=== PATIENT | female | born 1955 | race Caucasian/White ===

== ENCOUNTER 2016-10-15 11:28 | Outpatient (CLI) | payer OTHER ==
[2016-10-15 11:34] LABS: BASOPHILS % 0.5 (0.0-1.5); EOSINOPHILS % 2.6 % (0.0-6.8); LYMPHOCYTES # 1.8 # k/uL (0.6-4.0); MEAN CORPUSCULAR HEMOGLOBIN 28.5 pg (28.0-34.0); MONOCYTES # 0.5 # k/uL (0.0-0.9); MONOCYTES % 7.8 % (0.0-11.0); NEUTROPHILS # 4.3 # k/uL (1.4-7.7)
[2016-10-15 11:57] LABS: eGFR (African) > 60; eGFR (Non-African) > 60
== END 2016-10-15 11:30 ==
LOC: LABRHC 11:28
PROVIDERS: ATTEND Family Medicine
DX: R11.2 Nausea with vomiting, unspecified (principal)
CPT/HCPCS: 80053; 82150; 85025

== ENCOUNTER 2017-04-29 14:37 | Outpatient (CLI) | payer OTHER ==
--- NOTE | 2017-04-29 16:50 | Diagnostic Imaging Report ---
[facility] [id number] [facility].[address] [id number] Report Submission Date: Apr 29, 2017 3:09:29 PM CDT Patient Study Name: GRETEL ANGELES Date: Apr 29, 2017 2:48:53 PM CDT Modality Type: US Gender: F Description: US ABD LIMITED : 57 Institution: [facility] Physician: VITOR CALDERON - JAKOB Examination: Ultrasound abdomen limited History: Painful abdominal bulging near umbilicus. Comparison exams: None available Findings: Sonographic evaluation in the region of patient's reported discomfort demonstrates normal bowel within the abdominal cavity. No evidence for soft tissue mass or suspicious fluid collection. Impression: No evidence for soft tissue mass or suspicious fluid collection. Consider further evaluation with CT scan with valsalva maneuvers. Electronically signed on Apr 29, 2017 3:09:29 PM CDT by: Valente CORTEZ
== END 2017-04-29 14:40 ==
LOC: RAD 14:37
PROVIDERS: ATTEND Family Medicine
DX: K43.9 Ventral hernia without obstruction or gangrene (principal)
CPT/HCPCS: 76705

== ENCOUNTER 2017-05-10 07:27 | Outpatient (CLI) | payer OTHER ==
[2017-05-10 08:40] LABS: eGFR (African) > 60; eGFR (Non-African) > 60
--- NOTE | 2017-05-10 15:28 | Diagnostic Imaging Report ---
RHETT CALDERON [facility] [id number] [facility], [facility] [place], [place]. [address] Report Submission Date: May 10, 2017 10:02:45 AM CDT Patient Study Name: GRETEL ANGELES Date: May 10, 2017 9:24:36 AM CDT Modality Type: CT\SR Gender: F Description: CT ABD & PELVIS W/ CON : 57 Institution: [facility] Physician: RHETT CALDERON CT abdomen and pelvis with IV contrast Clinical history: Periumbilical abdominal pain for 1 month 88 ml of visipaque Radiation dose DLP 1194 4 cm hiatal hernia . No focal hepatic or splenic pathology. Mild fatty infiltration of the pancreas . Normal adrenal glands. Post cholecystectomy. Normal kidneys without hydronephrosis or mass lesions. No retroperitoneal adenopathy or aneurysm. 5.5 cm anterior abdominal wall ventral hernia with herniated small bowel loops, there is some edema in the region. Occasional incarceration of this hernia could not be entirely excluded. No bowel obstruction. No free fluid in the abdomen or pelvis. Bladder and pelvic watts are normal. Omentum is normal. The visible lung bases are normal. Very mild lumbar spondylosis. Impression: Anterior abdominal wall ventral hernia with herniated small bowel loops, the opening of the hernia is about 5.5 cm however the size of the hernia is about 12 x 6 cm with edema in the omentum of this region and the bowel loops suggestive of possible of transient incarceration . No bowel obstruction , 4 cm hiatal hernia . Mild lumbar spondylosis , mild fatty infiltration of the pancreas Electronically signed on May 10, 2017 10:02:45 AM CDT by: Rhett CORTEZ
== END 2017-05-10 07:30 ==
LOC: RAD 07:27
PROVIDERS: ATTEND Family Medicine
DX: K44.9 Diaphragmatic hernia without obstruction or gangrene (principal); M47.9 Spondylosis, unspecified
CPT/HCPCS: 36415; 74177; 80053; A9698; Q9967

== ENCOUNTER 2019-04-14 08:32 | Outpatient (CLI) | payer BC ==
--- NOTE | 2019-04-15 14:40 | Diagnostic Imaging Report ---
VITOR CALDERON [facility] [address] [facility] [address] [address] Report Submission Date: Apr 14, 2019 10:24:12 AM CDT Patient Study Name: GRETEL ANGELES Date: Apr 14, 2019 8:39:24 AM CDT Modality Type: US Gender: F Description: US ABDOMEN LIMITED : 57 Institution: [facility] Physician: VITOR CALDERON Exam: Limited abdominal ultrasound. History: Abdominal wall hernia. Real-time grayscale imaging of the abdominal wall is performed. The examination is compromised due to patient's body habitus. Multiple areas of shadowing are identified. No pati areas of peristalsis is detected on this study. Impression: Multiple areas of shadowing corresponds to the palpable abnormality described. This could represent hernia. CT is recommended to further characterize. Electronically signed on Apr 14, 2019 10:24:12 AM CDT by: Derek CORTEZ
== END 2019-04-14 08:35 ==
LOC: RAD 08:32
PROVIDERS: ATTEND Family Medicine
DX: K43.9 Ventral hernia without obstruction or gangrene (principal)
CPT/HCPCS: 76705